=== PATIENT | male | born 1935 | race Caucasian/White ===

== ENCOUNTER 2020-10-15 06:59 | Emergency (ER) | payer OTHER ==
[~2020-10-15] VITALS: Ht 165.1 cm; Wt 81.6 kg
[~2020-10-15 06:59] MED LIST: ALLO100T PO; CHOL400C7; DABI75CA5 PO; DICY10CA12 PO; HYDR-4833; LEVO100T8 PO; LORA1TAB23 PO; LOSA-69 PO; MAGN400C2 PO; PREG50CA PO; SIMV-13 PO; SOTA80TA PO; TERA5CAP42 PO
[2020-10-15] MEDS ORDERED: HYDROcodone-ACET 5/325MG TAB PO ONE (08:45)
[2020-10-15 10:00] VITALS: BP 119/66
== END 2020-10-15 10:38 | disposition home or self-care (01) ==
LOC: ER 06:59 → EDBD 06:59 → ER 10:38
DX: S33.5XXA Sprain of ligaments of lumbar spine, initial encounter (principal); M79.10 Myalgia, unspecified site; J44.9 Chronic obstructive pulmonary disease, unspecified; K21.9 Gastro-esophageal reflux disease without esophagitis; M10.9 Gout, unspecified; E78.5 Hyperlipidemia, unspecified; I25.10 Atherosclerotic heart disease of native coronary artery without angina pectoris; I10 Essential (primary) hypertension; I25.2 Old myocardial infarction; Z86.73 Personal history of transient ischemic attack (TIA), and cerebral infarction without residual deficits; Z95.1 Presence of aortocoronary bypass graft; Z95.0 Presence of cardiac pacemaker; Z79.899 Other long term (current) drug therapy; X50.1XXA Overexertion from prolonged static or awkward postures, initial encounter; Y93.89 Activity, other specified; Y92.89 Other specified places as the place of occurrence of the external cause; Y99.8 Other external cause status
CPT/HCPCS: 72131; 93005

== ENCOUNTER 2020-12-04 15:50 | Inpatient (IN) | payer OTHER ==
[~2020-12-04] VITALS: Ht 157.5 cm; Wt 86.2 kg
[2020-12-04 16:31] LABS: Basophils # (auto) 0 10 ^3/uL (0-0.2); Basophils % (auto) 0.7 % (0.0-2.0); Eosinophils # (auto) 0.1 10 ^3/uL (0-0.8); Eosinophils % (auto) 2.6 % (0.0-7.0); Hematocrit 35.4 % (41.0-53.0); Hemoglobin 11.5 g/dL (13.5-17.5); Lymphocytes # (auto) 1.1 10 ^3/uL (0.4-5.4); Lymphocytes % (auto) 24.3 % (10.0-50.0); Mean Corpuscular Hemoglobin 30.8 pg (28.0-32.0); Mean Corpuscular Hgb Conc. 32.4 g/dL (32.0-36.0); Mean Corpuscular Volume 94.9 fL (80.0-100.0); Monocytes # (auto) 0.5 10 ^3/uL (0-1.3); Monocytes % (auto) 10.4 % (0.0-12.0); Neutrophils # (auto) 2.8 10 ^3/uL (1.6-8.6); Nucleated Red Blood Cells % 0.1 %; Red Blood Cells 3.73 10^6/uL (4.5-5.90); Red Cell Distribution Width 17.6 % (11.8-14.3); White Blood Cell 4.5 10^3/uL (4.4-10.8)
[2020-12-04 16:46] LABS: Calcium 8.6 mg/dL (8.5-10.1); INR 1.18 (0.9-1.15); Magnesium 2.1 mg/dL (1.6-2.6); Partial Thromboplastin Time 27.1 sec (23.6-33.0); Potassium 3.8 mmol/L (3.5-5.1)
[2020-12-04 16:51] LABS: Total Protein 6.7 g/dL (6.4-8.2)
[2020-12-04 20:06] LABS: Urine Bacteria FEW /hpf (None Seen); Urine Blood TRACE /uL (Negative); Urine Mucus FEW (None Seen); Urine Specific Gravity 1.026 (1.001-1.035); Urine WBC 3 /hpf (0 - 3)
[2020-12-04] MEDS ORDERED: MORPHINE SULFATE INJECTION 2 MG/ML SYRG IV PRN (23:00)
[2020-12-04] MEDS ORDERED: HYDROcodone-ACET 5/325MG TAB PO PRN (23:00)
[2020-12-04] MEDS ORDERED: DOCUSATE SOD 100 MG CAP PO PRN (23:00)
[2020-12-04] MEDS ORDERED: hydrALAZINE HCL 20 MG/ML VL IV PRN (23:00)
[2020-12-04] MEDS ORDERED: ACETAMINOPHEN 325 MG TAB PO PRN (23:00)
[2020-12-04] MEDS ORDERED: NITROGLYCERIN 0.4 MG SL TAB SL PRN (23:00)
[2020-12-04] MEDS ORDERED: ONDANSETRON HCL 4 MG/2 ML VIAL IV PRN (23:00)
[2020-12-05] MEDS: cefTRIAXone 1GM/50ML D5W 50 ML IV SCH ×2 (00:20→22:36)
[2020-12-05] MEDS ORDERED: POTA10TA51 PO (02:20)
[2020-12-05] MEDS ORDERED: TRAM50TA2 PO (02:20)
[2020-12-05] MEDS ORDERED: LORA1TAB23 PO (02:20)
[2020-12-05] MEDS ORDERED: DABI150C5 PO (02:20)
[2020-12-05] MEDS ORDERED: PANT40TA2 PO (02:20)
[2020-12-05] MEDS ORDERED: FURO1TAB31 PO (02:20)
[2020-12-05 04:57] VITALS: BP 128/66
[2020-12-05] MEDS: SODIUM CHLOR 0.9% PF (SALINE LOCK) 10ML VIAL/SYR IV SCH ×3 (06:16→22:36)
[2020-12-05] MEDS: LEVOTHYROXINE SODIUM 100 MCG TAB PO SCH (06:35)
[2020-12-05 06:56] LABS: Basophils # (auto) 0 10 ^3/uL (0-0.2); Basophils % (auto) 0.6 % (0.0-2.0); Eosinophils # (auto) 0.1 10 ^3/uL (0-0.8); Eosinophils % (auto) 3.1 % (0.0-7.0); Hematocrit 35.3 % (41.0-53.0); Hemoglobin 11.4 g/dL (13.5-17.5); Lymphocytes # (auto) 1.1 10 ^3/uL (0.4-5.4); Lymphocytes % (auto) 25.1 % (10.0-50.0); Mean Corpuscular Hemoglobin 30.9 pg (28.0-32.0); Mean Corpuscular Hgb Conc. 32.3 g/dL (32.0-36.0); Mean Corpuscular Volume 95.8 fL (80.0-100.0); Monocytes # (auto) 0.5 10 ^3/uL (0-1.3); Monocytes % (auto) 11.2 % (0.0-12.0); Neutrophils # (auto) 2.6 10 ^3/uL (1.6-8.6); Nucleated Red Blood Cells % 0.1 %; Red Blood Cells 3.69 10^6/uL (4.5-5.90); White Blood Cell 4.3 10^3/uL (4.4-10.8)
[2020-12-05 07:07] LABS: Albumin 2.8 g/dL (3.4-5.0); Calcium 8.7 mg/dL (8.5-10.1); Potassium 3.6 mmol/L (3.5-5.1)
[2020-12-05 07:10] LABS: BUN/Creatinine Ratio 10.3
[2020-12-05 07:12] LABS: Bilirubin, Total 1.1 mg/dL (0.2-1.0); Total Protein 6.6 g/dL (6.4-8.2)
[2020-12-05] MEDS: FUROSEMIDE 40 MG/4 ML VIAL IV SCH (08:50)
[2020-12-05] MEDS: FAMOTIDINE (10MG/ML) 2ML VL IV SCH (08:51)
[2020-12-05] MEDS: MULTIPLE VITAMIN TAB PO SCH (08:51)
[2020-12-05] MEDS: ZINC SULFATE 220mg CAP or TAB PO SCH (08:51)
[2020-12-05] MEDS: ALLOPURINOL 100 MG TAB PO SCH (08:51)
[2020-12-05] MEDS: ASCORBIC ACID 500 MG TAB PO SCH ×2 (08:51→22:37)
[2020-12-05 09:00] VITALS: BP 125/59
[2020-12-05 22:00] VITALS: BP 126/61
[2020-12-06 05:00] VITALS: BP 140/78
[2020-12-06] MEDS: SODIUM CHLOR 0.9% PF (SALINE LOCK) 10ML VIAL/SYR IV SCH ×2 (06:00→12:39)
[2020-12-06] MEDS: LEVOTHYROXINE SODIUM 100 MCG TAB PO SCH (06:51)
[2020-12-06 09:00] VITALS: BP 144/57
[2020-12-06] MEDS: FAMOTIDINE (10MG/ML) 2ML VL IV SCH (09:12)
[2020-12-06] MEDS: FUROSEMIDE 40 MG/4 ML VIAL IV SCH (09:12)
[2020-12-06] MEDS: ALLOPURINOL 100 MG TAB PO SCH (09:13)
[2020-12-06] MEDS: ASCORBIC ACID 500 MG TAB PO SCH (09:13)
[2020-12-06] MEDS: ZINC SULFATE 220mg CAP or TAB PO SCH (09:13)
[2020-12-06] MEDS: MULTIPLE VITAMIN TAB PO SCH (09:13)
[2020-12-06] MEDS ORDERED: CEPH500C PO (12:23)
[2020-12-06] MEDS ORDERED: FURO1TAB31 PO (12:25)
[2020-12-06 13:00] VITALS: BP 131/80
[2020-12-06 15:31] VITALS: BP 125/59
== END 2020-12-06 16:36 | disposition home health service (06) | DRG 292 ==
LOC: ER 15:50 → EDBD 15:50 → TELE 22:54 → TELE-WESTW 23:55
PROVIDERS: ADMIT Nurse Practitioner Family; ATTEND Internal Medicine
DX: I11.0 Hypertensive heart disease with heart failure (principal); I48.19 Other persistent atrial fibrillation; N39.0 Urinary tract infection, site not specified; E44.0 Moderate protein-calorie malnutrition; I50.23 Acute on chronic systolic (congestive) heart failure; D69.6 Thrombocytopenia, unspecified; Z20.822 Contact with and (suspected) exposure to COVID-19; E03.9 Hypothyroidism, unspecified; E78.5 Hyperlipidemia, unspecified; I25.10 Atherosclerotic heart disease of native coronary artery without angina pectoris; J44.9 Chronic obstructive pulmonary disease, unspecified; I42.9 Cardiomyopathy, unspecified; I08.3 Combined rheumatic disorders of mitral, aortic and tricuspid valves; K21.9 Gastro-esophageal reflux disease without esophagitis; Z79.01 Long term (current) use of anticoagulants; Z68.34 Body mass index [BMI] 34.0-34.9, adult; I25.2 Old myocardial infarction; Z79.899 Other long term (current) drug therapy; Z86.73 Personal history of transient ischemic attack (TIA), and cerebral infarction without residual deficits; Z90.49 Acquired absence of other specified parts of digestive tract; Z95.0 Presence of cardiac pacemaker; Z95.1 Presence of aortocoronary bypass graft; Z95.5 Presence of coronary angioplasty implant and graft; I49.5 Sick sinus syndrome
CPT/HCPCS: 36415; 71045; 80053; 81001; 83735; 83880; 84443; 84484; 84550; 85025; 85610; 85730; 87086; 87088; 87186; 87426; 93005; 93306; 93970; G0378; J0696; J3490

== ENCOUNTER 2020-12-20 12:44 | Inpatient (IN) | payer OTHER ==
[~2020-12-20] VITALS: Ht 182.9 cm; Wt 81.0 kg
[~2020-12-20 12:44] MED LIST changes: +CEPH500C PO; -CHOL400C7; +DABI150C5 PO; -DABI75CA5 PO; +FURO1TAB31 PO; -HYDR-4833; -MAGN400C2 PO; +PANT40TA2 PO; +POTA10TA51 PO; -PREG50CA PO; +TRAM50TA2 PO
[2020-12-20 14:33] LABS: Basophils # (auto) 0 10 ^3/uL (0-0.2); Basophils % (auto) 0.5 % (0.0-2.0); Eosinophils # (auto) 0.1 10 ^3/uL (0-0.8); Eosinophils % (auto) 2.4 % (0.0-7.0); Hematocrit 36.2 % (41.0-53.0); Hemoglobin 11.8 g/dL (13.5-17.5); Lymphocytes # (auto) 1.1 10 ^3/uL (0.4-5.4); Lymphocytes % (auto) 22.6 % (10.0-50.0); Mean Corpuscular Hgb Conc. 32.7 g/dL (32.0-36.0); Mean Corpuscular Volume 94.8 fL (80.0-100.0); Monocytes # (auto) 0.6 10 ^3/uL (0-1.3); Monocytes % (auto) 11.3 % (0.0-12.0); Neutrophils # (auto) 3.1 10 ^3/uL (1.6-8.6); Neutrophils % (auto) 63.2 % (37.0-80.0); Nucleated Red Blood Cells % 0.6 %; Red Blood Cells 3.81 10^6/uL (4.5-5.90); Red Cell Distribution Width 19.3 % (11.8-14.3); White Blood Cell 4.9 10^3/uL (4.4-10.8)
[2020-12-20 16:16] LABS: Potassium 4.5 mmol/L (3.5-5.1); Sodium 139 mmol/L (136-145)
[2020-12-20 16:17] LABS: Alanine Aminotransferase 339 U/L (16-61); Alkaline Phosphatase 91 U/L (45-117); Anion Gap 10 (5-15); Aspartate Aminotransferase 549 U/L (15-37); BUN/Creatinine Ratio 16.2; Bilirubin, Total 1.3 mg/dL (0.2-1.0); Blood Urea Nitrogen 38 mg/dL (7-18); Calcium 8.7 mg/dL (8.5-10.1); Carbon Dioxide 23 mmol/L (21-32); Chloride 106 mmol/L (98-107); GFR African American 34 mL/min; GFR Non-African American 28 mL/min; Glucose 95 mg/dL (74-106)
[2020-12-20 16:18] LABS: Albumin 2.8 g/dL (3.4-5.0); Total Protein 6.2 g/dL (6.4-8.2)
[2020-12-20 20:33] LABS: Urine Bacteria FEW /hpf (None Seen); Urine Blood Negative /uL (Negative); Urine Hyaline Cast MOD /lpf (0 - 2); Urine Mucus FEW (None Seen); Urine Specific Gravity 1.016 (1.001-1.035); Urine WBC 1 /hpf (0 - 3)
[2020-12-20] MEDS ORDERED: ONDANSETRON HCL 4 MG/2 ML VIAL IV PRN (22:00)
[2020-12-20] MEDS: SODIUM CHLOR 0.9% PF (SALINE LOCK) 10ML VIAL/SYR IV SCH (22:00)
[2020-12-20] MEDS ORDERED: ACETAMINOPHEN 325 MG TAB PO PRN (22:00)
[2020-12-20] MEDS ORDERED: DOCUSATE SOD 100 MG CAP PO PRN (22:00)
[2020-12-20] MEDS ORDERED: HYDROcodone-ACET 5/325MG TAB PO PRN (22:00)
[2020-12-20] MEDS: ASCORBIC ACID 500 MG TAB PO SCH (22:44)
[2020-12-20] MEDS ORDERED: NITROGLYCERIN 0.4 MG SL TAB SL PRN (23:00)
[2020-12-20] MEDS ORDERED: MORPHINE SULFATE INJECTION 2 MG/ML SYRG IV PRN (23:00)
[2020-12-21] VITALS (8 sets, daily range): BP systolic 107–122; BP diastolic 53–64
[2020-12-21 05:51] LABS: Basophils # (auto) 0 10 ^3/uL (0-0.2); Basophils % (auto) 0.4 % (0.0-2.0); Eosinophils # (auto) 0.1 10 ^3/uL (0-0.8); Eosinophils % (auto) 2.9 % (0.0-7.0); Hematocrit 36.6 % (41.0-53.0); Lymphocytes % (auto) 23.5 % (10.0-50.0); Mean Corpuscular Hemoglobin 30.8 pg (28.0-32.0); Mean Corpuscular Hgb Conc. 32.8 g/dL (32.0-36.0); Mean Corpuscular Volume 93.9 fL (80.0-100.0); Monocytes # (auto) 0.5 10 ^3/uL (0-1.3); Monocytes % (auto) 12.2 % (0.0-12.0); Neutrophils # (auto) 2.7 10 ^3/uL (1.6-8.6); Nucleated Red Blood Cells % 0.5 %; Red Blood Cells 3.89 10^6/uL (4.5-5.90); Red Cell Distribution Width 18.8 % (11.8-14.3); White Blood Cell 4.4 10^3/uL (4.4-10.8)
[2020-12-21 06:22] LABS: Potassium 4.3 mmol/L (3.5-5.1)
[2020-12-21] MEDS: SODIUM CHLOR 0.9% PF (SALINE LOCK) 10ML VIAL/SYR IV SCH ×3 (06:29→21:05)
[2020-12-21] MEDS: LEVOTHYROXINE SODIUM 100 MCG TAB PO SCH (06:29)
[2020-12-21 06:31] LABS: Albumin 2.7 g/dL (3.4-5.0); BUN/Creatinine Ratio 17.2; Bilirubin, Total 1.4 mg/dL (0.2-1.0); Calcium 8.7 mg/dL (8.5-10.1); Total Protein 6.4 g/dL (6.4-8.2)
[2020-12-21] MEDS: FAMOTIDINE (10MG/ML) 2ML VL IV SCH (09:46)
[2020-12-21] MEDS: MULTIPLE VITAMIN TAB PO SCH (09:46)
[2020-12-21] MEDS: FUROSEMIDE 20 MG/2 ML VIAL IV SCH (09:46)
[2020-12-21] MEDS: ASCORBIC ACID 500 MG TAB PO SCH (09:46)
[2020-12-21] MEDS: HEPARIN SODIUM (PORCINE) 5000 UNITS/ML 1ML VIAL SC SCH ×2 (09:52→21:08)
[2020-12-21] MEDS: ASPirin 81 mg TAB PO SCH (09:58)
[2020-12-21] MEDS ORDERED: ZINC SULFATE 220mg CAP or TAB PO SCH (10:00)
[2020-12-21] MEDS ORDERED: ALLOPURINOL 100 MG TAB PO SCH (10:00)
[2020-12-21 12:00] LABS: Urine Bacteria NONE SEEN /hpf (None Seen); Urine Blood Negative /uL (Negative); Urine Hyaline Cast MOD /lpf (0 - 2); Urine Specific Gravity 1.015 (1.001-1.035); Urine WBC 1 /hpf (0 - 3)
[2020-12-21 12:13] LABS: Protein, Urine 20.7 mg/dL (0.0-11.9)
[2020-12-22 05:00] VITALS: BP 118/67
[2020-12-22] MEDS: SODIUM CHLOR 0.9% PF (SALINE LOCK) 10ML VIAL/SYR IV SCH ×3 (05:35→20:33)
[2020-12-22] MEDS: LEVOTHYROXINE SODIUM 100 MCG TAB PO SCH (05:36)
[2020-12-22 05:39] LABS: Basophils # (auto) 0 10 ^3/uL (0-0.2); Basophils % (auto) 0.5 % (0.0-2.0); Eosinophils # (auto) 0.2 10 ^3/uL (0-0.8); Eosinophils % (auto) 4.2 % (0.0-7.0); Hematocrit 34.9 % (41.0-53.0); Hemoglobin 11.3 g/dL (13.5-17.5); Lymphocytes # (auto) 0.9 10 ^3/uL (0.4-5.4); Lymphocytes % (auto) 23.2 % (10.0-50.0); Mean Corpuscular Hemoglobin 30.7 pg (28.0-32.0); Mean Corpuscular Hgb Conc. 32.4 g/dL (32.0-36.0); Mean Corpuscular Volume 94.7 fL (80.0-100.0); Monocytes # (auto) 0.5 10 ^3/uL (0-1.3); Monocytes % (auto) 12.8 % (0.0-12.0); Neutrophils # (auto) 2.4 10 ^3/uL (1.6-8.6); Neutrophils % (auto) 59.3 % (37.0-80.0); Nucleated Red Blood Cells % 0.2 %; Red Blood Cells 3.69 10^6/uL (4.5-5.90)
[2020-12-22 05:59] LABS: Calcium 8.5 mg/dL (8.5-10.1); Potassium 3.6 mmol/L (3.5-5.1)
[2020-12-22 06:01] LABS: BUN/Creatinine Ratio 19.3
[2020-12-22 08:30] VITALS: BP 124/73
[2020-12-22] MEDS: MULTIPLE VITAMIN TAB PO SCH (09:43)
[2020-12-22] MEDS: FAMOTIDINE (10MG/ML) 2ML VL IV SCH (09:43)
[2020-12-22] MEDS: ASPirin 81 mg TAB PO SCH (09:43)
[2020-12-22] MEDS: FUROSEMIDE 20 MG/2 ML VIAL IV SCH (09:43)
[2020-12-22] MEDS: HEPARIN SODIUM (PORCINE) 5000 UNITS/ML 1ML VIAL SC SCH ×2 (09:56→20:34)
[2020-12-22 12:30] VITALS: BP 126/67
[2020-12-22 16:55] VITALS: BP 123/78
[2020-12-22] MEDS: TAMSULOSIN HYDROCHLORIDE 0.4 MG CAP PO SCH (18:21)
[2020-12-22 22:00] VITALS: BP 112/58
[2020-12-23 05:00] VITALS: BP 110/52
[2020-12-23] MEDS: LEVOTHYROXINE SODIUM 100 MCG TAB PO SCH (05:55)
[2020-12-23] MEDS: SODIUM CHLOR 0.9% PF (SALINE LOCK) 10ML VIAL/SYR IV SCH ×2 (05:55→15:01)
[2020-12-23 09:00] VITALS: BP 132/70
[2020-12-23] MEDS: FAMOTIDINE (10MG/ML) 2ML VL IV SCH (11:13)
[2020-12-23] MEDS: FUROSEMIDE 20 MG/2 ML VIAL IV SCH (11:13)
[2020-12-23] MEDS: ASPirin 81 mg TAB PO SCH (11:14)
[2020-12-23] MEDS: MULTIPLE VITAMIN TAB PO SCH (11:14)
[2020-12-23] MEDS: HEPARIN SODIUM (PORCINE) 5000 UNITS/ML 1ML VIAL SC SCH (11:17)
[2020-12-23 12:19] LABS: BUN/Creatinine Ratio 21.2; Calcium 8.7 mg/dL (8.5-10.1); Potassium 3.4 mmol/L (3.5-5.1)
[2020-12-23 13:00] VITALS: BP 116/56
[2020-12-23 17:00] VITALS: BP 127/67
[2020-12-23] MEDS: TAMSULOSIN HYDROCHLORIDE 0.4 MG CAP PO SCH (18:00)
== END 2020-12-23 18:08 | disposition hospice, home (50) | DRG 315 ==
LOC: ER 12:44 → EDBD 12:44 → TELE-CENTR 22:49
PROVIDERS: ADMIT Nurse Practitioner Family; ATTEND Hospitalist
PROC: 4B02XSZ Measurement of Cardiac Pacemaker, External Approach (ICD-10-PCS; principal; 2020-12-21)
DX: I42.9 Cardiomyopathy, unspecified (principal); I13.0 Hypertensive heart and chronic kidney disease with heart failure and stage 1 through stage 4 chronic kidney disease, or unspecified chronic kidney disease; I48.19 Other persistent atrial fibrillation; N39.0 Urinary tract infection, site not specified; N17.9 Acute kidney failure, unspecified; Z20.822 Contact with and (suspected) exposure to COVID-19; E86.0 Dehydration; I50.9 Heart failure, unspecified; E78.5 Hyperlipidemia, unspecified; F01.50 Vascular dementia, unspecified severity, without behavioral disturbance, psychotic disturbance, mood disturbance, and anxiety; I25.10 Atherosclerotic heart disease of native coronary artery without angina pectoris; J44.9 Chronic obstructive pulmonary disease, unspecified; Z66 Do not resuscitate; N18.31 Chronic kidney disease, stage 3a; N28.1 Cyst of kidney, acquired; K21.9 Gastro-esophageal reflux disease without esophagitis; M10.9 Gout, unspecified; M79.18 Myalgia, other site; E88.09 Other disorders of plasma-protein metabolism, not elsewhere classified; S33.5XXA Sprain of ligaments of lumbar spine, initial encounter; X58.XXXA Exposure to other specified factors, initial encounter; Z51.5 Encounter for palliative care; Z95.1 Presence of aortocoronary bypass graft; I25.2 Old myocardial infarction; Z86.73 Personal history of transient ischemic attack (TIA), and cerebral infarction without residual deficits; Z90.49 Acquired absence of other specified parts of digestive tract; Z95.0 Presence of cardiac pacemaker; Y93.89 Activity, other specified; Y92.89 Other specified places as the place of occurrence of the external cause; Y99.8 Other external cause status
CPT/HCPCS: 36415; 76775; 80048; 80053; 81001; 82570; 83880; 84156; 84300; 84443; 84484; 84550; 85025; 87426; 93005; 99291; G0378; J3490